=== PATIENT | male | born 1965 | race African-American/Black ===

== ENCOUNTER 2020-01-04 13:03 | Inpatient (IN) | payer MEDICAID, OTHER ==
[~2020-01-04] VITALS: Ht 170.2 cm; Wt 112.0 kg
[2020-01-04 14:16] LABS: HEMATOCRIT. 41.4 % (42.0-52.0); HEMOGLOBIN. 14.4 g/dL (14.0-18.0); MEAN CORPUSCULAR HEMOGLOBIN 29.7 pg (28.0-32.0); MEAN CORPUSCULAR VOLUME 85.4 fL (80.0-94.0); MEAN PLATELET VOLUME 7.5 fl (7.4-10.4); PLATELET 201 x1000/uL (130-400); RED BLOOD CELL COUNT 4.84 mill/uL (4.7-6.1); RED CELL DISTRIBUTION WIDTH 15.6 % (11.6-14.6)
[2020-01-04 14:34] LABS: CLARITY URINE CLEAR (CLEAR); COLOR URINE YELLOW (YELLOW); KETONES URINE 1+ (NEGATIVE); LEUKOCYTE ESTERASE URINE NEGATIVE (NEGATIVE); NITRITE URINE NEGATIVE (NEGATIVE); OCCULT BLOOD URINE 2+ (NEGATIVE); PH URINE 5.5 (4.5-8.0); PROTEIN URINE 1+ (NEGATIVE); SPECIFIC GRAVITY URINE 1.011 (1.005-1.030)
[2020-01-04 15:09] LABS: PLATELET ESTIMATE NORMAL
[2020-01-04 15:12] LABS: METHADONE URINE SCREEN NEGATIVE (NEGATIVE); OPIATES URINE SCREEN NEGATIVE (NEGATIVE)
[2020-01-04 15:13] LABS: *AMPHETAMINES SCREEN URINE NEGATIVE (NEGATIVE); *BARBITURATES SCREEN URINE NEGATIVE (NEGATIVE); *BENZODIAZEPINES SCREEN URINE NEGATIVE (NEGATIVE); *COCAINE SCREEN URINE NEGATIVE (NEGATIVE); CANNABINOID URINE SCREEN NEGATIVE (NEGATIVE); PHENCYCLIDINE URINE SCREEN NEGATIVE (NEGATIVE)
[2020-01-04 16:39] LABS: CHLORIDE 69 mEq/L (98-107)
[2020-01-04 16:43] LABS: ETHANOL BLOOD 259 mg/dL
[2020-01-04 17:14] LABS: CREATINE KINASE 1931 IU/L (39-308)
[2020-01-04] MEDS ORDERED: SODIUM CHLORIDE 0.9% 1,000 ML IV ONE (17:15)
[2020-01-04 18:02] LABS: CHLORIDE 67 mEq/L (98-107)
[2020-01-04] MEDS ORDERED: POTASSIUM CHLORIDE 20MEQ TABLET SR PO ONE (18:15)
[2020-01-04] MEDS ORDERED: POTASSIUM CHLORIDE INJ 30 MEQ in DEXT 5%/0.9% NACL 1,000 ML IV ONE (18:15)
[2020-01-04] MEDS ORDERED: ACETAMINOPHEN 325MG TABLET PO PRN (19:45)
[2020-01-04 23:31] LABS: HEPATITIS B SURFACE ANTIGEN NEGATIVE
[2020-01-05] VITALS: BP 129/79
[2020-01-05 00:01] LABS: HEPATITIS A AB IGM NEGATIVE (NEGATIVE)
[2020-01-05 00:14] LABS: PHOSPHORUS 2.2 mg/dL (2.5-4.9)
[2020-01-05] MEDS ORDERED: MORPHINE SULFATE 2 MG/ML CPJ (NOT FOR IM USE) IV PRN (01:15)
[2020-01-05 04:00] VITALS: BP 138/84
[2020-01-05] MEDS: ONDANSETRON HCL 4MG/2ML INJ IV PRN ×2 (06:04→14:21)
[2020-01-05] MEDS: CHLORDIAZEPOXIDE 25MG CAPSULE PO SCH ×3 (06:04→21:52)
[2020-01-05 07:06] LABS: HEMATOCRIT. 36.8 % (42.0-52.0); MEAN CORPUSCULAR HEMOGLOBIN 30.3 pg (28.0-32.0); MEAN CORPUSCULAR VOLUME 85.7 fL (80.0-94.0); PLATELET 198 x1000/uL (130-400); RED CELL DISTRIBUTION WIDTH 15.7 % (11.6-14.6)
[2020-01-05 07:22] LABS: CHLORIDE 77 mEq/L (98-107)
[2020-01-05 07:58] VITALS: BP 132/72
[2020-01-05] MEDS: THIAMINE HCL 100MG TABLET PO SCH (08:18)
[2020-01-05] MEDS: MULTIVITAMINS,THER W-MINERALS TABLET PO SCH (08:19)
[2020-01-05] MEDS: FOLIC ACID 1MG TABLET PO SCH (08:19)
[2020-01-05] MEDS ORDERED: POTASSIUM CHLORIDE 20MEQ TABLET SR PO NR (08:30)
[2020-01-05] MEDS: HYDROCODONE/ACETAMINOPHEN 5/325MG TABLET PO PRN ×2 (08:44→14:21)
[2020-01-05] MEDS ORDERED: POTASSIUM PHOS,M-BASIC-D-BASIC 10 MMOL in DEXT 5% WATER 246.6667 ML IV NR (10:00)
[2020-01-05] MEDS ORDERED: POTASSIUM CHLORIDE INJ 60 MEQ in DEXT 5% WATER 500 ML IV NR (10:00)
[2020-01-05] MEDS: SODIUM CHLORIDE 0.9% 1,000 ML IV SCH ×2 (10:44→21:53)
[2020-01-05] MEDS ORDERED: DEXT 10% WATER 1,000 ML IV SCH ×2 (11:45→12:00)
[2020-01-05 12:23] VITALS: BP 113/72
[2020-01-05 16:29] VITALS: BP 123/77
[2020-01-05 17:27] LABS: PLATELET ESTIMATE NORMAL
[2020-01-05] MEDS: TAMSULOSIN HCL 0.4MG SR CAPSULE PO SCH (18:00)
[2020-01-05 20:15] VITALS: BP 109/68
[2020-01-06 00:33] VITALS: BP 103/73
[2020-01-06 04:00] VITALS: BP 101/59
[2020-01-06] MEDS: CHLORDIAZEPOXIDE 25MG CAPSULE PO SCH ×3 (05:46→21:23)
[2020-01-06 08:19] VITALS: BP 111/73
[2020-01-06] MEDS: THIAMINE HCL 100MG TABLET PO SCH (08:40)
[2020-01-06] MEDS: FOLIC ACID 1MG TABLET PO SCH (08:40)
[2020-01-06] MEDS: TAMSULOSIN HCL 0.4MG SR CAPSULE PO SCH (08:40)
[2020-01-06] MEDS: MULTIVITAMINS,THER W-MINERALS TABLET PO SCH (08:40)
[2020-01-06] MEDS: SODIUM CHLORIDE 0.9% 1,000 ML IV SCH ×2 (08:41→11:45)
[2020-01-06 11:46] VITALS: BP 99/64
[2020-01-06] MEDS ORDERED: POTASSIUM CHLORIDE 20MEQ TABLET SR PO NR (12:30)
[2020-01-06] MEDS ORDERED: POTASSIUM CHLORIDE INJ 40 MEQ in DEXT 5% WATER 250 ML IV NR (13:30)
[2020-01-06 15:49] VITALS: BP 96/64
[2020-01-06] MEDS ORDERED: ZOLPIDEM TARTRATE 5MG TABLET PO PRN (22:15)
[2020-01-07] VITALS: BP 132/76
[2020-01-07] MEDS: SODIUM CHLORIDE 0.9% 1,000 ML IV SCH ×2 (01:05→15:35)
[2020-01-07 04:00] VITALS: BP 130/82
[2020-01-07] MEDS: CHLORDIAZEPOXIDE 25MG CAPSULE PO SCH ×3 (06:04→21:31)
[2020-01-07 07:00] LABS: CHLORIDE 96 mEq/L (98-107)
[2020-01-07 07:08] LABS: BASOPHILS % 0.6 % (0.0-2.0); EOSINOPHILS % 1.2 % (0.0-5.0); HEMATOCRIT. 35.9 % (42.0-52.0); HEMOGLOBIN. 12.4 g/dL (14.0-18.0); MEAN CORPUSCULAR HEMOGLOBIN 30.6 pg (28.0-32.0); MEAN CORPUSCULAR VOLUME 88.4 fL (80.0-94.0); MONOCYTES % 9.7 % (2.0-8.0); NEUTROPHILS % 74.5 % (40.0-76.0); PLATELET 220 x1000/uL (130-400); RED BLOOD CELL COUNT 4.06 mill/uL (4.7-6.1); RED CELL DISTRIBUTION WIDTH 16.2 % (11.6-14.6)
[2020-01-07 08:00] VITALS: BP 135/86
[2020-01-07] MEDS: TAMSULOSIN HCL 0.4MG SR CAPSULE PO SCH (08:37)
[2020-01-07] MEDS: MULTIVITAMINS,THER W-MINERALS TABLET PO SCH (08:38)
[2020-01-07] MEDS: THIAMINE HCL 100MG TABLET PO SCH (08:38)
[2020-01-07] MEDS: FOLIC ACID 1MG TABLET PO SCH (08:38)
[2020-01-07] MEDS ORDERED: POTASSIUM CHLORIDE 20MEQ TABLET SR PO SCH (09:00)
[2020-01-07 12:00] VITALS: BP 149/65
[2020-01-07] MEDS ORDERED: POTASSIUM CHLORIDE 10MEQ TABLET SR PO SCH (12:00)
[2020-01-07 16:00] VITALS: BP 106/62
[2020-01-07] MEDS: HYDROCODONE/ACETAMINOPHEN 5/325MG TABLET PO PRN (18:24)
[2020-01-07 20:23] VITALS: BP 99/65
[2020-01-08] VITALS (7 sets, daily range): BP systolic 97–129; BP diastolic 48–72
[2020-01-08] MEDS: SODIUM CHLORIDE 0.9% 1,000 ML IV SCH ×2 (03:48→18:25)
[2020-01-08] MEDS: CHLORDIAZEPOXIDE 25MG CAPSULE PO SCH ×2 (06:20→13:55)
[2020-01-08] MEDS: MULTIVITAMINS,THER W-MINERALS TABLET PO SCH (08:39)
[2020-01-08] MEDS: TAMSULOSIN HCL 0.4MG SR CAPSULE PO SCH (08:39)
[2020-01-08] MEDS: FOLIC ACID 1MG TABLET PO SCH (08:39)
[2020-01-08] MEDS: THIAMINE HCL 100MG TABLET PO SCH (08:39)
[2020-01-08 19:25] LABS: BASOPHILS % 0.7 % (0.0-2.0); HEMATOCRIT. 31.5 % (42.0-52.0); HEMOGLOBIN. 10.8 g/dL (14.0-18.0); LYMPHOCYTES % 12.5 % (20.0-50.0); MEAN CORPUSCULAR HEMOGLOBIN 30.4 pg (28.0-32.0); MEAN CORPUSCULAR VOLUME 88.5 fL (80.0-94.0); MEAN PLATELET VOLUME 6.9 fl (7.4-10.4); MONOCYTES % 8.8 % (2.0-8.0); PLATELET 246 x1000/uL (130-400); RED BLOOD CELL COUNT 3.56 mill/uL (4.7-6.1)
[2020-01-08 19:33] LABS: CHLORIDE 104 mEq/L (98-107)
== END 2020-01-08 20:40 | disposition home or self-care (01) | DRG 52 ==
LOC: EDBD 13:03 → ER 13:03 → EDBEDREQ 18:40 → EDBEDREQTM 18:40 → ENRESERV 21:47 → 6WST 21:58
PROVIDERS: ADMIT Internal Medicine; ATTEND Internal Medicine
DX: G93.40 Encephalopathy, unspecified (principal); E87.1 Hypo-osmolality and hyponatremia; M62.82 Rhabdomyolysis; Y90.8 Blood alcohol level of 240 mg/100 ml or more; F10.129 Alcohol abuse with intoxication, unspecified; E87.6 Hypokalemia; R74.0 Nonspecific elevation of levels of transaminase and lactic acid dehydrogenase [LDH]
CPT/HCPCS: 36415; 74176; 80048; 80053; 80061; 80305; 80307; 80320; 80329; 81003; 82140; 82533; 82550; 82962; 83735; 83930; 83935; 84100; 84132; 84133; 84145; 84295; 84443; 85025; 86705; 86709; 86803; 87340; 93005; 97162; 99291; J2270; J2405; J3480; J3490; J7030; J7042; J7060; G0480

== ENCOUNTER 2020-04-23 07:20 | Inpatient (IN) | payer MEDICAID ==
[~2020-04-23] VITALS: Ht 182.9 cm; Wt 76.7 kg
[2020-04-23] MEDS ORDERED: ONDANSETRON HCL 4MG/2ML INJ IV STA (07:37)
[2020-04-23] MEDS ORDERED: SODIUM CHLORIDE 0.9% 1,000 ML IV ONE (07:45)
[2020-04-23] MEDS ORDERED: FAMOTIDINE 20MG/2ML VIAL IV ONE (07:45)
[2020-04-23 08:39] LABS: HEMATOCRIT. 47.7 % (42.0-52.0); HEMOGLOBIN. 16.7 g/dL (14.0-18.0); MEAN CORPUSCULAR HEMOGLOBIN 28.8 pg (28.0-32.0); MEAN CORPUSCULAR VOLUME 82.1 fL (80.0-94.0); MEAN PLATELET VOLUME 8.9 fl (7.4-10.4); PLATELET 98 x1000/uL (130-400); RED BLOOD CELL COUNT 5.81 mill/uL (4.7-6.1); RED CELL DISTRIBUTION WIDTH 14.4 % (11.6-14.6)
[2020-04-23 08:47] LABS: CHLORIDE 74 mEq/L (98-107)
[2020-04-23 08:49] LABS: INR 1.2; PROTHROMBIN TIME 12.8 sec (9.6-11.0)
[2020-04-23 08:52] LABS: ETHANOL BLOOD 118 mg/dL
[2020-04-23] MEDS ORDERED: POTASSIUM CHLORIDE 20MEQ TABLET SR PO ONE (09:00)
[2020-04-23] MEDS ORDERED: MORPHINE SULFATE 4 MG/ML CPJ (NOT FOR IM USE) IV ONE (09:00)
[2020-04-23] MEDS ORDERED: LORAZEPAM 2MG/ML CPJ IV SCH (09:00)
[2020-04-23] MEDS ORDERED: KCL 10MEQ/50ML PREMIX 50 ML IV ONE (09:00)
[2020-04-23] MEDS ORDERED: CEFTRIAXONE 1 G PREMIX 50 ML IV NR (09:15)
[2020-04-23] MEDS ORDERED: SODIUM CHLORIDE 0.9% 1000ML BAG (SEPSIS BOLUS) IV ONE (09:15)
[2020-04-23 09:23] LABS: NUCLEATED RED BLOOD CELLS 1 /100 WBC; PLATELET ESTIMATE SLIGHTLY DECREASED
[2020-04-23] MEDS ORDERED: SODIUM CHLORIDE 0.9% 2,310 ML IV SCH (09:45)
[2020-04-23 10:47] LABS: CLARITY URINE CLEAR (CLEAR); COLOR URINE DARK YELLOW (YELLOW); KETONES URINE 2+ (NEGATIVE); LEUKOCYTE ESTERASE URINE NEGATIVE (NEGATIVE); NITRITE URINE NEGATIVE (NEGATIVE); OCCULT BLOOD URINE 2+ (NEGATIVE); PH URINE 5.5 (4.5-8.0); PROTEIN URINE 3+ (NEGATIVE); SPECIFIC GRAVITY URINE 1.031 (1.005-1.030)
[2020-04-23 11:05] LABS: *AMPHETAMINES SCREEN URINE NEGATIVE (NEGATIVE); *BARBITURATES SCREEN URINE NEGATIVE (NEGATIVE); *COCAINE SCREEN URINE NEGATIVE (NEGATIVE); METHADONE URINE SCREEN NEGATIVE (NEGATIVE); OPIATES URINE SCREEN PRESUMTIVE POSITIVE (NEGATIVE)
[2020-04-23 11:06] LABS: *BENZODIAZEPINES SCREEN URINE NEGATIVE (NEGATIVE); CANNABINOID URINE SCREEN NEGATIVE (NEGATIVE); PHENCYCLIDINE URINE SCREEN NEGATIVE (NEGATIVE)
[2020-04-23] MEDS ORDERED: METOPROLOL TARTRATE 5MG/5ML VIAL IV SCH (13:00)
[2020-04-23] MEDS ORDERED: CLONIDINE 0.1MG TABLET PO PRN (13:00)
[2020-04-23] MEDS ORDERED: DOCUSATE SODIUM 100MG CAPSULE PO PRN (13:00)
[2020-04-23] MEDS: SODIUM CHLORIDE 0.9% 1,000 ML IV SCH ×2 (13:00→22:17)
[2020-04-23] MEDS ORDERED: GUAIFENESIN 200MG/10ML SUGAR FREE UDC PO PRN (13:00)
[2020-04-23] MEDS ORDERED: ACETAMINOPHEN 325MG TABLET PO PRN (13:00)
[2020-04-23] MEDS ORDERED: IPRATROPIUM/ALBUTEROL 0.5-3(2.5)MG/3ML NEB HHN PRN (13:00)
[2020-04-23] MEDS ORDERED: MAGNESIUM/ALUMINUM HYDROXIDE/SIMETHICONE 30ML UDC PO PRN (13:00)
[2020-04-23] MEDS ORDERED: VANCOMYCIN 1500MG in DEXTROSE 5% WATER 250ML IV NR (14:00)
[2020-04-23] MEDS: THIAMINE HCL 100MG TABLET PO SCH (14:19)
[2020-04-23] MEDS: MULTIVITAMINS,THER W-MINERALS TABLET PO SCH (14:19)
[2020-04-23] MEDS: METOPROLOL TARTRATE 25MG TABLET PO SCH ×2 (14:19→21:57)
[2020-04-23 14:24] LABS: CHLORIDE 87 mEq/L (98-107); HEMATOCRIT. 38.2 % (42.0-52.0); HEMOGLOBIN. 13.3 g/dL (14.0-18.0); MEAN CORPUSCULAR HEMOGLOBIN 28.8 pg (28.0-32.0); MEAN CORPUSCULAR VOLUME 82.5 fL (80.0-94.0); MEAN PLATELET VOLUME 8.9 fl (7.4-10.4); PLATELET 79 x1000/uL (130-400); RED BLOOD CELL COUNT 4.63 mill/uL (4.7-6.1); RED CELL DISTRIBUTION WIDTH 14.2 % (11.6-14.6)
[2020-04-23 14:28] LABS: ETHANOL BLOOD < 10 mg/dL
[2020-04-23 14:34] LABS: PHOSPHORUS 1.8 mg/dL (2.5-4.9)
[2020-04-23 14:35] LABS: CREATINE KINASE MB FRACTION 6.6 ng/mL (0.5-3.6)
[2020-04-23 14:45] LABS: PLATELET ESTIMATE NORMAL
[2020-04-23 15:00] VITALS: BP 155/81
[2020-04-23 16:32] VITALS: BP 155/81
[2020-04-23] MEDS: HYDROCODONE/ACETAMINOPHEN 5/325MG TABLET PO PRN (18:13)
[2020-04-23 20:00] VITALS: BP 138/86
[2020-04-23] MEDS ORDERED: VANCOMYCIN 1250MG in DEXTROSE 5% WATER 250ML IV SCH (22:00)
[2020-04-23] MEDS ORDERED: MAGNESIUM 1 G PREMIX 100 ML IV NR (22:00)
[2020-04-23] MEDS ORDERED: POTASSIUM CHLORIDE INJ 40 MEQ in DEXT 5% WATER 250 ML IV NR (22:00)
[2020-04-24] VITALS (7 sets, daily range): BP systolic 109–144; BP diastolic 68–96
[2020-04-24] MEDS: METOPROLOL TARTRATE 25MG TABLET PO SCH ×3 (01:00→20:44)
[2020-04-24] MEDS: SODIUM CHLORIDE 0.9% 1,000 ML IV SCH ×2 (05:47→14:42)
[2020-04-24] MEDS: MORPHINE SULFATE 2 MG/ML CPJ (NOT FOR IM USE) IV PRN ×2 (06:48→12:19)
[2020-04-24 07:30] LABS: BASOPHILS % 0.3 % (0.0-2.0); EOSINOPHILS % 0.1 % (0.0-5.0); HEMATOCRIT. 39.2 % (42.0-52.0); HEMOGLOBIN. 13.6 g/dL (14.0-18.0); LYMPHOCYTES % 11.4 % (20.0-50.0); MEAN CORPUSCULAR HEMOGLOBIN 28.7 pg (28.0-32.0); MEAN CORPUSCULAR VOLUME 82.7 fL (80.0-94.0); MONOCYTES % 5.7 % (2.0-8.0); NEUTROPHILS % 82.5 % (40.0-76.0); PLATELET 83 x1000/uL (130-400); RED BLOOD CELL COUNT 4.74 mill/uL (4.7-6.1); RED CELL DISTRIBUTION WIDTH 14.2 % (11.6-14.6)
[2020-04-24 07:45] LABS: CHLORIDE 87 mEq/L (98-107)
[2020-04-24 07:51] LABS: AMYLASE 170 IU/L (25-115); PHOSPHORUS 1.2 mg/dL (2.5-4.9)
[2020-04-24 07:53] LABS: LDL CHOLESTEROL 55 mg/dL (5-100)
[2020-04-24 07:54] LABS: HDL CHOLESTEROL 109 mg/dL (40-59)
[2020-04-24 07:56] LABS: CREATINE KINASE 553 IU/L (39-308); CREATINE KINASE MB FRACTION 3.6 ng/mL (0.5-3.6)
[2020-04-24] MEDS: THIAMINE HCL 100MG TABLET PO SCH (08:48)
[2020-04-24] MEDS: FOLIC ACID 1MG TABLET PO SCH (08:48)
[2020-04-24] MEDS: MULTIVITAMINS,THER W-MINERALS TABLET PO SCH (08:48)
[2020-04-24] MEDS: PANTOPRAZOLE SODIUM 40 MG/VIAL IV SCH (08:49)
[2020-04-24] MEDS ORDERED: POTASSIUM CHLORIDE 20MEQ TABLET SR PO SCH ×2 (09:00→13:45)
[2020-04-24] MEDS ORDERED: ENOXAPARIN 40MG/0.4ML SYR SUBCUT SCH (09:00)
[2020-04-24] MEDS ORDERED: POTASSIUM CHLORIDE INJ 40 MEQ in DEXT 5% WATER 250 ML IV SCH (11:00)
[2020-04-24] MEDS ORDERED: POTASSIUM PHOS,M-BASIC-D-BASIC 20 MMOL in DEXT 5% WATER 243.3333 ML IV ONE (14:00)
[2020-04-24 23:50] LABS: BASOPHILS % 0.3 % (0.0-2.0); EOSINOPHILS % 0.3 % (0.0-5.0); HEMATOCRIT. 36.3 % (42.0-52.0); HEMOGLOBIN. 12.7 g/dL (14.0-18.0); LYMPHOCYTES % 18.1 % (20.0-50.0); MEAN CORPUSCULAR VOLUME 83.3 fL (80.0-94.0); MEAN PLATELET VOLUME 8.7 fl (7.4-10.4); MONOCYTES % 8.9 % (2.0-8.0); NEUTROPHILS % 72.4 % (40.0-76.0); PLATELET 94 x1000/uL (130-400); RED BLOOD CELL COUNT 4.36 mill/uL (4.7-6.1); RED CELL DISTRIBUTION WIDTH 14.4 % (11.6-14.6)
[2020-04-25] VITALS: BP 113/75
[2020-04-25] MEDS: SODIUM CHLORIDE 0.9% 1,000 ML IV SCH ×2 (01:31→14:49)
[2020-04-25 04:00] VITALS: BP 108/71
[2020-04-25 07:03] LABS: BASOPHILS % 0.5 % (0.0-2.0); EOSINOPHILS % 0.5 % (0.0-5.0); HEMATOCRIT. 38.5 % (42.0-52.0); HEMOGLOBIN. 13.3 g/dL (14.0-18.0); LYMPHOCYTES % 18.6 % (20.0-50.0); MEAN CORPUSCULAR HEMOGLOBIN 28.8 pg (28.0-32.0); MEAN CORPUSCULAR VOLUME 83.4 fL (80.0-94.0); MEAN PLATELET VOLUME 8.8 fl (7.4-10.4); MONOCYTES % 8.1 % (2.0-8.0); NEUTROPHILS % 72.3 % (40.0-76.0); PLATELET 107 x1000/uL (130-400); RED BLOOD CELL COUNT 4.62 mill/uL (4.7-6.1); RED CELL DISTRIBUTION WIDTH 14.3 % (11.6-14.6)
[2020-04-25 07:24] LABS: CHLORIDE 88 mEq/L (98-107)
[2020-04-25 07:38] LABS: AMYLASE 129 IU/L (25-115)
[2020-04-25 07:44] LABS: PHOSPHORUS 2.3 mg/dL (2.5-4.9)
[2020-04-25 08:07] VITALS: BP 121/80
[2020-04-25] MEDS: METOPROLOL TARTRATE 25MG TABLET PO SCH ×2 (08:11→20:50)
[2020-04-25] MEDS: THIAMINE HCL 100MG TABLET PO SCH (08:15)
[2020-04-25] MEDS: MULTIVITAMINS,THER W-MINERALS TABLET PO SCH (08:15)
[2020-04-25] MEDS: PANTOPRAZOLE SODIUM 40 MG/VIAL IV SCH (08:15)
[2020-04-25] MEDS: FOLIC ACID 1MG TABLET PO SCH (08:15)
[2020-04-25] MEDS ORDERED: POTASSIUM CHLORIDE 20MEQ TABLET SR PO ONE (08:45)
[2020-04-25] MEDS ORDERED: POTASSIUM CHLORIDE INJ 40 MEQ in DEXT 5% WATER 250 ML IV ONE (09:00)
[2020-04-25] MEDS: CHLORDIAZEPOXIDE 25MG CAPSULE PO SCH ×3 (10:18→19:24)
[2020-04-25 12:00] VITALS: BP 120/82
[2020-04-25] MEDS ORDERED: POTASSIUM-SODIUM PHOSPHATE POWDER PACKET PO NR (12:15)
[2020-04-25] MEDS ORDERED: LIDOCAINE HCL 1% 20ML VIAL (Pyxis) INJ ONE (13:34)
[2020-04-25] MEDS ORDERED: SODIUM BICARBONATE 4% (2.4MEQ) 5ML VIAL IV ONE (13:34)
[2020-04-25 16:00] VITALS: BP 102/61
[2020-04-25 20:00] VITALS: BP 167/90
[2020-04-25] MEDS: HYDROCODONE/ACETAMINOPHEN 5/325MG TABLET PO PRN (20:58)
[2020-04-26] VITALS: BP 95/63
[2020-04-26 04:00] VITALS: BP 96/61
[2020-04-26] MEDS: SODIUM CHLORIDE 0.9% 1,000 ML IV SCH ×2 (05:59→13:34)
[2020-04-26 07:30] LABS: BASOPHILS % 0.5 % (0.0-2.0); EOSINOPHILS % 0.7 % (0.0-5.0); HEMATOCRIT. 36.7 % (42.0-52.0); HEMOGLOBIN. 12.6 g/dL (14.0-18.0); LYMPHOCYTES % 24.7 % (20.0-50.0); MEAN CORPUSCULAR VOLUME 84.6 fL (80.0-94.0); MEAN PLATELET VOLUME 8.3 fl (7.4-10.4); MONOCYTES % 12.3 % (2.0-8.0); NEUTROPHILS % 61.8 % (40.0-76.0); PLATELET 137 x1000/uL (130-400); RED BLOOD CELL COUNT 4.33 mill/uL (4.7-6.1); RED CELL DISTRIBUTION WIDTH 14.6 % (11.6-14.6)
[2020-04-26 07:56] LABS: CHLORIDE 96 mEq/L (98-107)
[2020-04-26 08:00] VITALS: BP 103/70
[2020-04-26] MEDS: METOPROLOL TARTRATE 25MG TABLET PO SCH ×2 (08:06→20:42)
[2020-04-26] MEDS: CHLORDIAZEPOXIDE 25MG CAPSULE PO SCH ×3 (09:23→17:07)
[2020-04-26] MEDS: PANTOPRAZOLE SODIUM 40 MG/VIAL IV SCH (09:23)
[2020-04-26] MEDS: MULTIVITAMINS,THER W-MINERALS TABLET PO SCH (09:23)
[2020-04-26] MEDS: FOLIC ACID 1MG TABLET PO SCH (09:24)
[2020-04-26] MEDS: THIAMINE HCL 100MG TABLET PO SCH (09:30)
[2020-04-26] MEDS ORDERED: POTASSIUM CHLORIDE 20MEQ TABLET SR PO NR ×2 (10:00→18:00)
[2020-04-26 12:00] VITALS: BP 103/61
[2020-04-26] MEDS ORDERED: POTASSIUM-SODIUM PHOSPHATE POWDER PACKET PO NR (12:45)
[2020-04-26 16:00] VITALS: BP 98/65
[2020-04-26] MEDS ORDERED: POTASSIUM ACETATE 40 MEQ in SODIUM CHLORIDE 0.9% 1,000 ML IV SCH (16:03)
[2020-04-26 17:12] LABS: HEPATITIS B SURFACE ANTIGEN NEGATIVE
[2020-04-26 17:41] LABS: HEPATITIS A AB IGM NEGATIVE (NEGATIVE)
[2020-04-26] MEDS: POTASSIUM CHLORIDE INJ 40 MEQ in SODIUM CHLORIDE 0.9% 1,000 ML IV SCH (18:01)
[2020-04-26 20:00] VITALS: BP 95/70
[2020-04-27] VITALS (7 sets, daily range): BP systolic 95–114; BP diastolic 56–68
[2020-04-27] MEDS: POTASSIUM CHLORIDE INJ 40 MEQ in SODIUM CHLORIDE 0.9% 1,000 ML IV SCH ×2 (04:00→15:24)
[2020-04-27 05:10] LABS: HIV SCREEN 4G Non Reactive (Non Reactive)
[2020-04-27] MEDS: FOLIC ACID 1MG TABLET PO SCH (08:24)
[2020-04-27] MEDS: MULTIVITAMINS,THER W-MINERALS TABLET PO SCH (08:24)
[2020-04-27] MEDS: THIAMINE HCL 100MG TABLET PO SCH (08:24)
[2020-04-27] MEDS: CHLORDIAZEPOXIDE 25MG CAPSULE PO SCH ×3 (08:24→17:39)
[2020-04-27] MEDS: METOPROLOL TARTRATE 25MG TABLET PO SCH (08:25)
[2020-04-27] MEDS: PANTOPRAZOLE SODIUM 40 MG/VIAL IV SCH (08:25)
[2020-04-27] MEDS ORDERED: METO25TA6 PO (11:58)
[2020-04-27] MEDS ORDERED: MULT-1146 MT (11:58)
[2020-04-27] MEDS ORDERED: FOLI-43 PO (11:58)
[2020-04-27] MEDS ORDERED: CHLO25CA10 MT (12:03)
[2020-04-27 15:36] LABS: CHLORIDE 104 mEq/L (98-107)
== END 2020-04-27 18:10 | disposition home or self-care (01) | DRG 282 ==
LOC: ER 07:20 → 8WST 10:50 → EDBEDREQ 10:54 → ENRESERV 14:04 → CANRESERV 14:04 → ENRESERV 14:15
PROVIDERS: ADMIT Internal Medicine; ATTEND Internal Medicine
PROC: 02HV33Z Insertion of Infusion Device into Superior Vena Cava, Percutaneous Approach (ICD-10-PCS; principal; 2020-04-25)
PROC: B548ZZA Ultrasonography of Superior Vena Cava, Guidance (ICD-10-PCS; 2020-04-25)
DX: K85.20 Alcohol induced acute pancreatitis without necrosis or infection (principal); E88.09 Other disorders of plasma-protein metabolism, not elsewhere classified; E87.6 Hypokalemia; E87.2 Acidosis; E83.39 Other disorders of phosphorus metabolism; E78.00 Pure hypercholesterolemia, unspecified; D69.6 Thrombocytopenia, unspecified; D64.9 Anemia, unspecified; I10 Essential (primary) hypertension; K29.60 Other gastritis without bleeding; K76.0 Fatty (change of) liver, not elsewhere classified; K22.6 Gastro-esophageal laceration-hemorrhage syndrome; Z56.0 Unemployment, unspecified; K70.9 Alcoholic liver disease, unspecified; F10.129 Alcohol abuse with intoxication, unspecified; Y90.5 Blood alcohol level of 100-119 mg/100 ml; D72.829 Elevated white blood cell count, unspecified
CPT/HCPCS: 36415; 36573; 71045; 76705; 80048; 80053; 80061; 80076; 80305; 80320; 81003; 82140; 82150; 82248; 82550; 82553; 83605; 83735; 84100; 84132; 84145; 84443; 84484; 85025; 86705; 86709; 86803; 87340; 87389; 93005; 93306; 93970; 97116; 97162; 97166; 97530; 97535; 99291; C1725; C1893; C9113; J0696; J1650; J2060; J2270; J2405; J3370; J3475; J3480; J3490; J7030; J7060; G0480

== ENCOUNTER 2021-03-07 03:45 | Inpatient (IN) | payer MEDICAID ==
[~2021-03-07] VITALS: Ht 177.8 cm; Wt 74.4 kg
[~2021-03-07 03:45] MED LIST: CHLO25CA10 MT; FOLI-43 PO; METO25TA6 PO; MULT-1146 MT
[2021-03-07] MEDS ORDERED: ONDANSETRON HCL 4MG/2ML INJ IV STA (04:30)
[2021-03-07] MEDS ORDERED: SODIUM CHLORIDE 0.9% 1,000 ML IV ONE (04:30)
[2021-03-07] MEDS ORDERED: MORPHINE SULFATE 4 MG/ML CPJ (NOT FOR IM USE) IV STA (04:30)
[2021-03-07] MEDS ORDERED: FAMOTIDINE 20MG/2ML VIAL IV STA (04:30)
[2021-03-07 04:48] LABS: BASOPHILS % 0.3 % (0.0-2.0); HEMATOCRIT. 38.5 % (42.0-52.0); HEMOGLOBIN. 13.8 g/dL (14.0-18.0); LYMPHOCYTES % 13.1 % (20.0-50.0); MEAN CORPUSCULAR HEMOGLOBIN 30.2 pg (28.0-32.0); MEAN CORPUSCULAR VOLUME 84.4 fL (80.0-94.0); MEAN PLATELET VOLUME 7.7 fl (7.4-10.4); MONOCYTES % 7.5 % (2.0-8.0); NEUTROPHILS % 79.1 % (40.0-76.0); PLATELET 106 x1000/uL (130-400); RED BLOOD CELL COUNT 4.56 mill/uL (4.7-6.1); RED CELL DISTRIBUTION WIDTH 14.6 % (11.6-14.6)
[2021-03-07 04:52] LABS: CHLORIDE 63 mEq/L (98-107)
[2021-03-07 04:56] LABS: ETHANOL BLOOD 143 mg/dL
[2021-03-07 04:58] LABS: INR 1.3; PROTHROMBIN TIME 13.5 sec (9.6-11.0)
[2021-03-07] MEDS ORDERED: MORPHINE SULFATE 2 MG/ML CPJ (NOT FOR IM USE) IV SCH (05:30)
[2021-03-07] MEDS ORDERED: POTASSIUM CHLORIDE INJ 40 MEQ in DEXT 5% WATER 250 ML IV SCH (06:00)
[2021-03-07] MEDS ORDERED: ZOLPIDEM TARTRATE 5MG TABLET PO PRN (07:30)
[2021-03-07] MEDS ORDERED: NA PHOS,M-B/NA PHOS,DI-BA ENEMA 118ML PR PRN (07:30)
[2021-03-07] MEDS ORDERED: IPRATROPIUM/ALBUTEROL 0.5-3(2.5)MG/3ML NEB NEB PRN (07:30)
[2021-03-07] MEDS ORDERED: KETOROLAC 15MG/ML VIAL IV PRN (07:30)
[2021-03-07] MEDS ORDERED: MAGNESIUM/ALUMINUM HYDROXIDE/SIMETHICONE 30ML UDC PO PRN (07:30)
[2021-03-07] MEDS ORDERED: DOCUSATE SODIUM 100MG CAPSULE PO PRN (07:30)
[2021-03-07] MEDS ORDERED: NITROGLYCERIN 0.4MG TABLET SL SL PRN (07:30)
[2021-03-07] MEDS ORDERED: POTASSIUM CHLORIDE 20MEQ TABLET SR PO NR ×2 (07:30→20:00)
[2021-03-07] MEDS ORDERED: CLONIDINE 0.1MG TABLET PO PRN (07:30)
[2021-03-07] MEDS ORDERED: ACETAMINOPHEN 325MG TABLET PO PRN ×2 (07:30)
[2021-03-07] MEDS ORDERED: GUAIFENESIN 200MG/10ML SUGAR FREE UDC PO PRN (07:30)
[2021-03-07] MEDS: FAMOTIDINE 20MG TABLET PO SCH ×2 (08:33→20:44)
[2021-03-07] MEDS: ENOXAPARIN 40MG/0.4ML SYR SUBCUT SCH (08:34)
[2021-03-07] MEDS: ASPIRIN 325MG EC TABLET PO SCH (08:34)
[2021-03-07] MEDS ORDERED: MVI, ADULT NO.1 10 ML, FOLIC ACID 1 MG, THIAMINE HCL 100 MG in SODIUM CHLORIDE 0.9% 1,0... IV NR (09:30)
[2021-03-07 10:30] VITALS: BP 137/85
[2021-03-07 11:27] LABS: FOLIC ACID (FOLATE) SERUM 8.5 ng/mL (>5.38)
[2021-03-07 11:44] LABS: CHLORIDE 72 mEq/L (98-107)
[2021-03-07 11:51] LABS: LDL CHOLESTEROL 88 mg/dL (5-100)
[2021-03-07 11:52] LABS: HDL CHOLESTEROL 92 mg/dL (40-59); T4 FREE 1.02 ng/dL (0.76-1.46)
[2021-03-07 11:56] LABS: TOTAL IRON BINDING CAPACITY 268 ug/dL (250-450)
[2021-03-07 12:00] VITALS: BP 126/67
[2021-03-07] MEDS: DILTIAZEM HCL 60MG TABLET PO SCH ×2 (13:11→18:05)
[2021-03-07 15:54] VITALS: BP 116/58
[2021-03-07 18:17] LABS: CHLORIDE 75 mEq/L (98-107)
[2021-03-07 19:19] LABS: CLARITY URINE CLEAR (CLEAR); COLOR URINE DARK YELLOW (YELLOW); KETONES URINE 3+ (NEGATIVE); LEUKOCYTE ESTERASE URINE NEGATIVE (NEGATIVE); NITRITE URINE NEGATIVE (NEGATIVE); OCCULT BLOOD URINE 2+ (NEGATIVE); PROTEIN URINE 1+ (NEGATIVE); SPECIFIC GRAVITY URINE 1.016 (1.005-1.030)
[2021-03-07 19:24] LABS: SODIUM URINE RANDOM 9 mEq/L
[2021-03-07 19:31] LABS: *AMPHETAMINES SCREEN URINE NEGATIVE (NEGATIVE); *BARBITURATES SCREEN URINE NEGATIVE (NEGATIVE); *BENZODIAZEPINES SCREEN URINE NEGATIVE (NEGATIVE); *COCAINE SCREEN URINE NEGATIVE (NEGATIVE); METHADONE URINE SCREEN NEGATIVE (NEGATIVE); OPIATES URINE SCREEN PRESUMTIVE POSITIVE (NEGATIVE); PHENCYCLIDINE URINE SCREEN NEGATIVE (NEGATIVE)
[2021-03-07 19:32] LABS: CANNABINOID URINE SCREEN NEGATIVE (NEGATIVE)
[2021-03-07 20:00] VITALS: BP_SYST 119; BP_SYST 146; BP_DIAS 61; BP_DIAS 72
[2021-03-07] MEDS ORDERED: POTASSIUM CHLORIDE INJ 40 MEQ in DEXT 5% WATER 250 ML IV NR (22:00)
[2021-03-08] VITALS (7 sets, daily range): BP systolic 100–124; BP diastolic 59–80
[2021-03-08] MEDS: DILTIAZEM HCL 60MG TABLET PO SCH ×4 (00:19→18:00)
[2021-03-08 00:35] LABS: CREATINE KINASE MB FRACTION 20.4 ng/mL (0.5-3.6)
[2021-03-08 08:02] LABS: BASOPHILS % 0.4 % (0.0-2.0); EOSINOPHILS % 0.4 % (0.0-5.0); HEMOGLOBIN. 13.2 g/dL (14.0-18.0); LYMPHOCYTES % 15.3 % (20.0-50.0); MEAN CORPUSCULAR HEMOGLOBIN 29.6 pg (28.0-32.0); MEAN PLATELET VOLUME 8.3 fl (7.4-10.4); MONOCYTES % 4.8 % (2.0-8.0); NEUTROPHILS % 79.1 % (40.0-76.0); PLATELET 95 x1000/uL (130-400); RED BLOOD CELL COUNT 4.46 mill/uL (4.7-6.1); RED CELL DISTRIBUTION WIDTH 14.7 % (11.6-14.6)
[2021-03-08 08:06] LABS: CHLORIDE 81 mEq/L (98-107)
[2021-03-08 08:28] LABS: PHOSPHORUS 0.9 mg/dL (2.5-4.9)
[2021-03-08] MEDS: FAMOTIDINE 20MG TABLET PO SCH (08:51)
[2021-03-08] MEDS: ASPIRIN 325MG EC TABLET PO SCH (08:51)
[2021-03-08] MEDS ORDERED: POTASSIUM CHLORIDE INJ 40 MEQ in DEXT 5% WATER 250 ML IV ONE (10:00)
[2021-03-08] MEDS: ENOXAPARIN 40MG/0.4ML SYR SUBCUT SCH (10:07)
[2021-03-08] MEDS ORDERED: POTASSIUM PHOS,M-BASIC-D-BASIC 30 MMOL in SODIUM CHLORIDE 0.9% 500 ML IV ONE (12:00)
[2021-03-08] MEDS: POTASSIUM-SODIUM PHOSPHATE POWDER PACKET PO SCH (18:28)
[2021-03-08 23:20] LABS: CHLORIDE 85 mEq/L (98-107)
[2021-03-09] MEDS: DILTIAZEM HCL 60MG TABLET PO SCH ×4 (00:04→16:18)
[2021-03-09] MEDS: FAMOTIDINE 20MG TABLET PO SCH ×3 (00:11→20:05)
[2021-03-09 04:00] VITALS: BP 113/71
[2021-03-09 07:45] LABS: CHLORIDE 87 mEq/L (98-107)
[2021-03-09 07:53] LABS: BASOPHILS % 0.7 % (0.0-2.0); EOSINOPHILS % 1.2 % (0.0-5.0); HEMATOCRIT. 40.4 % (42.0-52.0); HEMOGLOBIN. 13.8 g/dL (14.0-18.0); LYMPHOCYTES % 17.3 % (20.0-50.0); MEAN CORPUSCULAR HEMOGLOBIN 29.7 pg (28.0-32.0); MEAN CORPUSCULAR VOLUME 87.1 fL (80.0-94.0); MEAN PLATELET VOLUME 8.3 fl (7.4-10.4); MONOCYTES % 6.1 % (2.0-8.0); NEUTROPHILS % 74.7 % (40.0-76.0); PLATELET 111 x1000/uL (130-400); RED BLOOD CELL COUNT 4.64 mill/uL (4.7-6.1); RED CELL DISTRIBUTION WIDTH 14.8 % (11.6-14.6)
[2021-03-09 07:55] LABS: PHOSPHORUS 1.6 mg/dL (2.5-4.9)
[2021-03-09 08:00] VITALS: BP 104/64
[2021-03-09] MEDS: ENOXAPARIN 40MG/0.4ML SYR SUBCUT SCH (08:00)
[2021-03-09] MEDS: POTASSIUM-SODIUM PHOSPHATE POWDER PACKET PO SCH ×2 (09:45→16:21)
[2021-03-09] MEDS: ASPIRIN 325MG EC TABLET PO SCH (09:45)
[2021-03-09] MEDS ORDERED: POTASSIUM PHOS,M-BASIC-D-BASIC 30 MMOL in DEXT 5% WATER 500 ML IV SCH (11:00)
[2021-03-09 12:00] VITALS: BP 110/63
[2021-03-09] MEDS: ONDANSETRON HCL 4MG/2ML INJ IV PRN ×2 (12:48→21:04)
[2021-03-09] MEDS ORDERED: POTASSIUM CHLORIDE 20MEQ TABLET SR PO NR (15:30)
[2021-03-09 16:00] VITALS: BP 93/64
[2021-03-09 18:00] VITALS: BP 93/64
[2021-03-09 20:00] VITALS: BP 84/48
[2021-03-09] MEDS ORDERED: SODIUM CHLORIDE 0.9% 1000ML BAG (SEPSIS BOLUS) IV NR (21:00)
[2021-03-10] VITALS: BP 114/79
[2021-03-10 04:00] VITALS: BP 95/60
[2021-03-10] MEDS: DILTIAZEM HCL 60MG TABLET PO SCH ×5 (05:02→23:01)
[2021-03-10 06:56] LABS: HEMATOCRIT. 38.6 % (42.0-52.0); HEMOGLOBIN. 13.1 g/dL (14.0-18.0); MEAN CORPUSCULAR HEMOGLOBIN 29.8 pg (28.0-32.0); MEAN CORPUSCULAR VOLUME 87.5 fL (80.0-94.0); MEAN PLATELET VOLUME 8.1 fl (7.4-10.4); PLATELET 115 x1000/uL (130-400); RED BLOOD CELL COUNT 4.41 mill/uL (4.7-6.1); RED CELL DISTRIBUTION WIDTH 15.1 % (11.6-14.6)
[2021-03-10 07:24] LABS: CHLORIDE 92 mEq/L (98-107)
[2021-03-10 07:35] LABS: PHOSPHORUS 3.3 mg/dL (2.5-4.9)
[2021-03-10 08:00] VITALS: BP 107/64
[2021-03-10] MEDS: POTASSIUM-SODIUM PHOSPHATE POWDER PACKET PO SCH ×2 (09:17→17:15)
[2021-03-10] MEDS: FAMOTIDINE 20MG TABLET PO SCH ×2 (09:17→20:17)
[2021-03-10] MEDS: ASPIRIN 325MG EC TABLET PO SCH (09:17)
[2021-03-10] MEDS: ENOXAPARIN 40MG/0.4ML SYR SUBCUT SCH (09:18)
[2021-03-10 12:00] VITALS: BP 122/76
[2021-03-10 16:30] VITALS: BP 97/48
[2021-03-10 19:27] LABS: PLATELET ESTIMATE DECREASED
[2021-03-10 20:00] VITALS: BP 103/67
[2021-03-11] VITALS: BP 106/69
[2021-03-11 04:00] VITALS: BP 107/66
[2021-03-11] MEDS: DILTIAZEM HCL 60MG TABLET PO SCH ×2 (05:45→12:41)
[2021-03-11 07:22] LABS: CHLORIDE 92 mEq/L (98-107)
[2021-03-11 07:35] LABS: PHOSPHORUS 4.1 mg/dL (2.5-4.9)
[2021-03-11 08:00] VITALS: BP 95/59
[2021-03-11] MEDS: ENOXAPARIN 40MG/0.4ML SYR SUBCUT SCH (09:01)
[2021-03-11] MEDS: FAMOTIDINE 20MG TABLET PO SCH (09:01)
[2021-03-11] MEDS: POTASSIUM-SODIUM PHOSPHATE POWDER PACKET PO SCH (09:01)
[2021-03-11] MEDS: ASPIRIN 325MG EC TABLET PO SCH (09:01)
[2021-03-11] MEDS ORDERED: POTASSIUM CHLORIDE 20MEQ TABLET SR PO SCH (11:00)
[2021-03-11 13:17] VITALS: BP 151/83
== END 2021-03-11 15:09 | disposition home or self-care (01) | DRG 425 ==
LOC: ER 03:45 → MICUSO 05:30 → 8WST 08:42
PROVIDERS: ADMIT Internal Medicine; ATTEND Internal Medicine
DX: E87.6 Hypokalemia (principal); K85.90 Acute pancreatitis without necrosis or infection, unspecified; K70.10 Alcoholic hepatitis without ascites; D63.8 Anemia in other chronic diseases classified elsewhere; E83.51 Hypocalcemia; E83.39 Other disorders of phosphorus metabolism; E87.1 Hypo-osmolality and hyponatremia; R74.01 Elevation of levels of liver transaminase levels; F10.129 Alcohol abuse with intoxication, unspecified; Y90.9 Presence of alcohol in blood, level not specified; Z79.899 Other long term (current) drug therapy; Z82.49 Family history of ischemic heart disease and other diseases of the circulatory system
CPT/HCPCS: 36415; 71045; 74176; 76705; 80048; 80053; 80061; 80305; 80320; 81003; 82533; 82550; 82553; 82607; 82746; 83036; 83540; 83550; 83735; 83880; 83935; 84100; 84300; 84439; 84443; 84484; 85025; 93005; 93970; 99291; J1650; J1885; J2270; J2405; J3411; J3480; J3490; J7030; J7040; J7060; G0480